=== PATIENT | female | born 1950 | race Caucasian/White ===

== ENCOUNTER 2019-05-02 05:26 | Inpatient (IN) | payer OTHER, MEDICARE ==
[2019-04-20 12:15] LABS: URINE BILIRUBIN NEGATIVE (Negative); URINE BLOOD 1+ (Negative); URINE CLARITY CLEAR; URINE COLOR YELLOW; URINE GLUCOSE-RANDOM* NEGATIVE (Negative); URINE KETONES NEGATIVE (Negative); URINE LEUKOCYTES-REFLEX NEGATIVE (Negative); URINE NITRITE-REFLEX NEGATIVE (Negative); URINE PROTEIN (DIPSTICK) NEGATIVE (Negative); URINE SPECIFIC GRAVITY <= 1.005 (1.005-1.035); URINE UROBILINOGEN 0.2 E.U./dl (0.2-1.0)
[2019-04-20 12:20] LABS: HEMATOCRIT 35.9 % (37.0-47.0); HEMOGLOBIN 12.2 gm/dL (12.0-15.0); MCH 29.9 pg (26.0-34.0); MCV 88.2 fL (80.0-100.0); RBC 4.08 mil/uL (4.20-5.00); RDW 13.8 % (10.5-14.5); WBC 7.5 thou/uL (4.0-11.0)
[2019-04-20 12:27] LABS: ALBUMIN 3.6 g/dL (3.4-5.0); CALCIUM 9.5 mg/dL (8.5-10.1); CREATININE 0.9 mg/dL (0.6-1.0); POTASSIUM 3.3 mmol/L (3.5-5.1); PROTIME 10.7 Seconds (9.3-11.4)
[2019-04-20 12:35] LABS: CASTS None Seen /LPF (None Seen); CRYSTALS None Seen /LPF (None Seen); SQUAMOUS 0-3 Few /LPF (0-3); URINE RBC 3-10 Few /HPF (0-2); URINE WBC-REFLEX 0-5 Rare /HPF (0-5)
[2019-04-20 12:36] LABS: BACTERIA-REFLEX 1-9 Few /HPF (None Seen)
[~2019-05-02] VITALS: Ht 162.6 cm; Wt 77.5 kg
[2019-05-02] VITALS (7 sets, daily range): BP systolic 97–143; BP diastolic 61–73
--- NOTE | ~2019-05-02 | O ---
[facility] [place] [address] OPERATIVE REPORT Name: KARTHIKEYAN WHITESIDE Room #: 150-5 ADM IN M.R.#: [id number] Admission: 05/02/19 ������������������ Attend Phys: Tom Ridley MD Discharge: ������������������ Date of : 50 Report #: [id number] THIS REPORT FOR: //name// CC: ASHLEY CLARKE Physician staff Tom Ridley DATE OF SERVICE: 05/02/2019 PREOPERATIVE DIAGNOSIS: Right knee osteoarthritis. POSTOPERATIVE DIAGNOSIS: Right knee osteoarthritis. PROCEDURE: Right total knee arthroplasty using Navio robotic assist. SURGEON: Tom Ridley MD. MID LEVEL PRACTITIONER: Bita Díaz PA-C. ANESTHESIA: LMA with an adductor canal block. IMPLANTS: [employer] size 4 Legion cobalt chrome posterior stabilized femur, size 2 tibia, size 32 patella and a size 9 polyethylene. TOURNIQUET TIME: 52 minutes. ESTIMATED BLOOD LOSS: 25 mL. INDICATION FOR MID LEVEL PRACTITIONER: Throughout the case, extensive retraction and manipulation of the knee was required. This was afforded to me by my medical assistant dermatology. CONDITION UPON LEAVING THE OPERATING ROOM: Stable. INDICATION FOR PROCEDURE: The patient is a 69-year-old female with right knee osteoarthritis. She had failed conservative measures for this and after discussion with her, she elected for right total knee arthroplasty. DESCRIPTION OF PROCEDURE: Risks, benefits, alternatives, complications were discussed in detail with the patient including but not limited to risk of anesthesia, risk of damage to nerves, arteries, blood vessels, risk for infection, bleeding, risk for continued knee pain, need for reoperation. Informed consent was obtained from the patient. Right knee was appropriately marked in the preoperative holding area. IV Ancef was given for preoperative antibiotics. Adductor canal block was placed per anesthesia. She was brought to the operating room and placed in the supine position on the operating room table. LMA anesthesia was induced without complication. Tourniquet was placed [address] [address] OPERATIVE REPORT Name: KARTHIKEYAN WHITESIDE Room #: 150-5 [facility] IN .R.#: [id number] Admission: 05/02/19 ������������������ Attend Phys: Tom Ridley MD Discharge: ������������������ Date of : 50 Report #: [id number] on the right thigh. Right lower extremity was prepped and draped in normal sterile fashion. Timeout was performed properly identifying the patient as well as the instrumentation and implants. All in the operating room were in agreement. Right lower extremity was exsanguinated, tourniquet was inflated. Tourniquet time was 52 minutes. Standard midline approach to the knee was made with 10 blade through the skin. Dissection was taken down sharply to the fascia and deep flaps were developed medially and laterally. Fresh 10 blade used to make a medial parapatellar arthrotomy and the knee inspected. There was severe tricompartmental osteoarthritis. ACL and PCL were removed sharply. Reference pins were placed in the femur and the tibia and the knee was digital mapped using the [employer] robotic system. Intraoperative plan was made and we sized a size 4 femur, size 2 tibia, with size 10 polyethylene. After acceptance of the intraoperative plan, the distal femoral cut was made with a Navio teresa. The 4-in-1 cutting block was placed. Anterior, posterior chamfer cuts were made. Attention was turned to the tibia. The remainder of the menisci removed with Bovie cautery and the tibial resection guide was put in placed using the Navio system placement. After this, flexion and extension gaps were found to have good balance in flexion and extension both medially and laterally with a 9 spacer. After this, tibia was sized, tibia was found to be a size 2, a size 2 tibial trial was placed and punched. A size 4 femoral trial was placed and the box cut was made and this was then trialed with a size 9 polyethylene. Knee was taken through range of motion, found to have good balance in flexion and extension with a millimeter gap throughout range of motion medially and laterally. A 9 mm was taken off the posterior surface of the patella and a size 32 patellar trial button was placed. Knee was taken through range of motion, found to be stable, found to have good patellar tracking. After this, trial components were removed. Bone ends were thoroughly irrigated with normal saline. A final size 2 tibia, size 4 cobalt chrome Legion posterior stabilized femur and a size 32 patella were cemented in place using standard cementation techniques. While the cement cured, a periarticular injection consisting of morphine, ropivacaine, epinephrine and Toradol was placed around the knee joint capsule. After the cement cured, tourniquet was deflated. Hemostasis was obtained with Bovie cautery. A final size 9 polyethylene was placed. A gram of vancomycin was placed in the joint. Fascia was closed with 0 Vicryl, skin was closed with 2-0 Vicryl, 3-0 Monocryl. Dermabond and a RIDDHI dressing was applied. The patient tolerated this procedure well and went to recovery room under care of anesthesia postoperatively. ��������������������������������������������� ���������������������������������������� By: ��������������������������������������������� [id number] Tom Ridley MD /nt
[~2019-05-02 05:26] MED LIST: FISH OIL 1,001000 M2 PO; IBUPROFEN 400400 M2 PO; LISINOPRIL40 MG PO; MAXZIDE-25 MG1 EACH PO; MELATONIN5 M1 PO; METOPROLOL SUC100 MG PO; VITAMIN D31000 UNIT PO
[2019-05-03 00:30] VITALS: BP 102/58
[2019-05-03 05:15] VITALS: BP 99/57
[2019-05-03 05:53] LABS: HEMATOCRIT 29.3 % (37.0-47.0); HEMOGLOBIN 10.2 gm/dL (12.0-15.0); MCH 30.5 pg (26.0-34.0); MCHC 34.9 g/dL (28.0-37.0); MCV 87.3 fL (80.0-100.0); RBC 3.35 mil/uL (4.20-5.00); RDW 13.8 % (10.5-14.5)
--- NOTE | 2019-05-03 06:07 | NUR ---
ASSUMED CARE OF PT@1900. PT ARRIVED @THE UNIT @1800 POST OP RIGHT KNEE OA. RIDDHI DRESSING INTACT AND ICE IN PLACE. MARYLIN HOSE ON BOTH EXTREMITIES. C/O MILD PAIN AND PAIN MED GIVEN FO MANAGEMENT. UP TO BEDSIDE COMMODE AND FLUIDS INFUSING. FALL PREC IN PLACE AND CALL LIGHT WITHIN REACH WILL CONTINUE TO MONITOR TILL EOS
[2019-05-03 07:53] VITALS: BP 108/56
--- NOTE | 2019-05-03 08:29 | NUR ---
INITIAL ASSESSMENT: Pt evaluated for d/c planning needs. Reviewed chart and spoke with nurse, pt and pt's daughter. Pt is alert and oriented. Pt lives alone in house and was independent with ADL's prior to admission to the hospital. Pt remains active in the community and is still driving. Pt has no DME and has not had home health in the past. Pt has outpatient PT appointment scheduled for . Daughter will provide transportation. Pt plans on staying with her son for about a week after d/c from the hospital. When pt returns home, her daughter plans to stay with her. Pt given choices and is agreeable to [facility] providing walker. Order sent to [facility] liaison. Will remain available to assist as needed.
[2019-05-03] MEDS ORDERED: ASPIR 8181 MG PO (10:07)
[2019-05-03] MEDS ORDERED: NEURONTIN 300300 M1 PO (10:07)
--- NOTE | 2019-05-03 14:09 | NUR ---
Assumed care of pt at 0700. Pt a&ox4. Up with stand by w/walker and gait belt. Pain controlled with prn pain meds. Pt worked with physical therapy. Call light within reach. Fall precautions in place. Will continue to monitor.
[2019-05-03 15:38] VITALS: BP 109/58
[2019-05-03 16:49] VITALS: BP 109/58
== END 2019-05-03 18:34 | disposition home or self-care (01) | DRG 470 ==
LOC: 4E 05:26 → TBA 05:26 → PRE 06:19 → 4E 17:50 → ENTRNSPT 05-03 17:57 → 4E 05-03 18:34
PROVIDERS: ADMIT Orthopaedic Surgery
PROC: 0SRC0J9 Replacement of Right Knee Joint with Synthetic Substitute, Cemented, Open Approach (ICD-10-PCS; principal; 2019-05-02)
PROC: 8E0Y0CZ Robotic Assisted Procedure of Lower Extremity, Open Approach (ICD-10-PCS; principal; 2019-05-02)
DX: M17.11 Unilateral primary osteoarthritis, right knee (principal); I10 Essential (primary) hypertension; I25.10 Atherosclerotic heart disease of native coronary artery without angina pectoris; M16.11 Unilateral primary osteoarthritis, right hip; M45.9 Ankylosing spondylitis of unspecified sites in spine; G89.29 Other chronic pain; E78.00 Pure hypercholesterolemia, unspecified; K58.9 Irritable bowel syndrome, unspecified; Z82.49 Family history of ischemic heart disease and other diseases of the circulatory system; Z82.3 Family history of stroke; Z81.1 Family history of alcohol abuse and dependence; Z91.040 Latex allergy status; Z88.6 Allergy status to analgesic agent; Z88.2 Allergy status to sulfonamides; Z88.5 Allergy status to narcotic agent; Z87.891 Personal history of nicotine dependence; Z88.8 Allergy status to other drugs, medicaments and biological substances
CPT/HCPCS: 10783; 50010; 50101; 50415; 50954; 51130; 51225; 53000; 53078; 53364; 54118; 56527; 56528; 57095; 57103; 57110; 57127; 57180; 62110; 62900; 64042; 70005